=== PATIENT | male | born 1975 | race Caucasian/White ===

== ENCOUNTER 2020-03-31 21:38 | Emergency (ER) | payer OTHER ==
[2020-03-31] MEDS ORDERED: Sodium Chloride 0.9% 2.5 ML Syringe FLUSH PRN (22:00)
[2020-03-31] MEDS ORDERED: Sodium Chloride 0.9% 10 ML Syringe FLUSH PRN (22:00)
--- NOTE | 2020-03-31 22:28 | EDM.PDOC ---
ED HPI GENERAL MEDICAL PROBLEM - General Chief Complaint: Eye Problems Stated Complaint: RIGHT EYE PROBLEMS Time Seen by Provider: 03/31/20 21:47 Source of Information: Reports: Patient History Limitations: Reports: No Limitations - History of Present Illness INITIAL COMMENTS - FREE TEXT/NARRATIVE: History of present illness: [Patient is 44-year-old male presenting with pain behind his right eye. States the pain is been present there for the last month and a half. He has been taking medications [id number] for treatment of sinus pressure including Sudafed, Tylenol, ibuprofen. He says these medications have not provided any real relief. Denies any notable change in his vision involving the right eye. Has not seen an spindle tester, [facility] Denies chest pain, shortness of breath, A. fib, palpitations, previous intracranial hemorrhage, or any complications with his eye previous to the last month and a half. Does not weld, denies foreign body sensation, denies purulent or thick discharge, denies fever, denies history of glaucoma.] Review of systems: As per history of present illness and below otherwise all systems reviewed and negative. Past medical history: As per history of present illness and as reviewed below otherwise noncontributory. Surgical history: As per history of present illness and as reviewed below otherwise noncontributory. Social history: No reported history of drug or alcohol abuse. Family history: As per history of present illness and as reviewed below otherwise noncontributory. Physical exam: General: Awake, alert, no acute distress, A&O X3. HEENT: Atraumatic, normocephalic, PERRL, mildly injected conjunctiva bilaterally. EOMI. no visual field defects. mucous membranes moist, throat clear, neck supple, nontender, trachea midline. Lungs: Clear to auscultation, breath sounds equal bilaterally, chest nontender. Heart: S1S2, regular, negative for clicks, rubs, or JVD. Abdomen: Soft, nondistended, nontender. Negative for masses or hepatosplenomegaly. Negative for costovertebral tenderness. Pelvis: Stable nontender. Genitourinary: Deferred. Rectal: Deferred. Extremities: Atraumatic, negative for cords or calf pain. Neurovascular unremarkable. Neuro: Awake, alert, oriented. Motor and sensory grossly intact throughout. Exam nonfocal. Diagnostics: [] Therapeutics: [] Impression: [] Plan: [] Definitive disposition and diagnosis as appropriate pending reevaluation and review of above. Right Eye Pain Score (Numeric/FACES): 10 - Related Data Allergies Allergy/AdvReac Type Severity Reaction Status Date / Time metformin Allergy Swelling Verified 03/31/20 21:50 Home Meds: Home Meds Amoxicillin/Potassium Clav [Augmentin 875-125 Tablet] 1 each PO BID #20 tablet 03/31/20 [Rx] Tetrahydrozoline HCl [Visine] 1 mg EYEBOTH DAILY 03/31/20 [History] Past Medical History HEENT History: Reports: Other (See Below) Other HEENT History: eye problems Cardiovascular History: Reports: None Respiratory History: Reports: None Gastrointestinal History: Reports: None Genitourinary History: Reports: None Musculoskeletal History: Reports: None Neurological History: Reports: None Psychiatric History: Reports: None Endocrine/Metabolic History: Reports: None Hematologic History: Reports: None Oncologic (Cancer) History: Reports: None Dermatologic History: Reports: None - Infectious Disease History Infectious Disease History: Reports: None - Past Surgical History Head Surgeries/Procedures: Reports: None Male Surgical History: Reports: None Social & Family History - Tobacco Use Smoking Status *Q: Current Every Day Smoker Years of Tobacco use: 10 Packs/Tins Daily: 0.5 - Caffeine Use Caffeine Use: Reports: None - Alcohol Use Days Per Week of Alcohol Use: 2 Number of Drinks Per Day: 3 Total Drinks Per Week: 6 - Recreational Drug Use Recreational Drug Use: No ED ROS GENERAL - Review of Systems Review Of Systems: Comprehensive ROS is negative, except as noted in HPI. ED EXAM GENERAL W FULL EYE - Physical Exam Exam: See Below (see h and p) ED EYE w/ Add Procedure - Additional/Other Procedure(s) Other (Free Text) Procedure(s) [Text1]: Ocular ultrasound: Bedside ocular ultrasound on the right eye performed by me at bedside reveals no evidence for vitreous hemorrhage, no evidence for retinal detachment, no evidence for globe rupture. Course - Vital Signs Text/Narrative:: CT scan is negative for signs of retrobulbar hematoma, no mass, no abscess. Bedside ultrasound shows no evidence for retinal detachment or vitreous hemorrhage. Pupils are PERRL, EOMI, visual acuity essentially within normal limits. Overall a reassuring work-up of the eye, I believe he is appropriate for outpatient management and follow-up with ophthalmology for further testing and evaluation. Provided him with contact information to set up an appointment with ophthalmology in the outpatient setting. Patient is agreeable and comfortable this plan. I also gave him empiric Augmentin here, he is complaining of some sinus pressure, in the event that this is an irregular presentation of sinusitis I elected to give him a dose of Augmentin and sent him with a prescription for Augmentin for the next 10 days. He was otherwise well-appearing, stable vital signs, nontoxic at the time of discharge with return precautions provided. Last Recorded V/S: Last Vital Signs Temp 36.4 C 03/31/20 21:46 Pulse 96 03/31/20 23:46 Resp 18 03/31/20 23:46 BP 135/83 03/31/20 23:46 Pulse Ox 99 03/31/20 23:46 - Orders/Labs/Meds Orders: Active Orders 24 hr Category Date Time Status Sodium Chloride 0.9% [Saline Flush] Med 03/31/20 22:00 Active 10 ml FLUSH ASDIRECTED PRN Sodium Chloride 0.9% [Saline Flush] Med 03/31/20 22:00 Active 2.5 ml FLUSH ASDIRECTED PRN Saline Lock Insert [OM.PC] Stat Oth 03/31/20 22:00 Ordered Medication Orders Sodium Chloride (Saline Flush) 10 ml FLUSH ASDIRECTED PRN PRN Reason: Keep Vein Open Sodium Chloride (Saline Flush) 2.5 ml FLUSH ASDIRECTED PRN PRN Reason: Keep Vein Open Labs: Laboratory Tests 03/31/20 03/31/20 Range/Units 22:28 22:28 WBC 8.20 (4.0-11.0) K/uL RBC 4.51 (4.50-5.90) M/uL Hgb 15.9 (13.0-17.0) g/dL Hct 44.8 (38.0-50.0) % MCV 99.3 H (80.0-98.0) fL MCH 35.3 H (27.0-32.0) pg MCHC 35.5 (31.0-37.0) g/dL RDW Std Deviation 54.4 (28.0-62.0) fl RDW Coeff of Nohemy 15 (11.0-15.0) % Plt Count 135 L (150-400) K/uL MPV 11.80 (7.40-12.00) fL Neut % (Auto) 60.2 (48.0-80.0) % Lymph % (Auto) 31.6 (16.0-40.0) % [place] % (Auto) 6.6 (0.0-15.0) % Eos % (Auto) 1.1 (0.0-7.0) % Baso % (Auto) 0.5 (0.0-1.5) % Neut # (Auto) 4.9 (1.4-5.7) K/uL Lymph # (Auto) 2.6 H (0.6-2.4) K/uL [place] # (Auto) 0.5 (0.0-0.8) K/uL Eos # (Auto) 0.1 (0.0-0.7) K/uL Baso # (Auto) 0.0 (0.0-0.1) K/uL Nucleated RBC % 0.0 /100WBC Nucleated RBCs # 0 K/uL Sodium 134 L (136-148) mmol/L Potassium 2.6 L (3.5-5.1) mmol/L Chloride 93 L (98-107) mmol/L Carbon Dioxide 31.6 (21.0-32.0) mmol/L BUN 3 L (7.0-18.0) mg/dL Creatinine 1.0 (0.8-1.3) mg/dL Est Cr Clr Drug Dosing 106.53 mL/min Estimated GFR (MDRD) > 60.0 ml/min Glucose 131 H (74-106) mg/dL Calcium 8.9 (8.5-10.1) mg/dL Meds: Medications Generic Name Dose Route Start Last Admin Trade Name Freq PRN Reason Stop Dose Admin Sodium Chloride 10 ml 03/31/20 22:00 Saline Flush FLUSH ASDIRECTED PRN Keep Vein Open Sodium Chloride 2.5 ml 03/31/20 22:00 Saline Flush FLUSH ASDIRECTED PRN Keep Vein Open Discontinued Medications Generic Name Dose Route Start Last Admin Trade Name Freq PRN Reason Stop Dose Admin Amoxicillin/Clavulanate Potassium 1 tab 03/31/20 23:50 Augmentin 875 Mg/125 Mg PO 03/31/20 23:51 ONETIME ONE Iopamidol 50 ml 03/31/20 23:23 03/31/20 23:23 Isovue-370 (76%) IVPUSH 03/31/20 23:24 50 ml ONETIME ONE Administration Potassium Chloride 40 meq 03/31/20 22:57 03/31/20 23:31 Potassium Chloride PO 03/31/20 22:58 40 meq ONETIME ONE Administration Departure - Departure Time of Disposition: 23:57 Disposition: Home, Self-Care 01 Condition: Good Clinical Impression: Eye pain, Sinusitis - Discharge Information Prescriptions: Amoxicillin/Potassium Clav [Augmentin 875-125 Tablet] 1 each PO BID #20 tablet Instructions: Sinusitis, Adult, [id number] Referrals: PCP,None [Primary Care Provider] - Mitul Law MD [Ordering Only Provider] - Forms: ED Department Discharge Additional Instructions: Follow-up with ophthalmology. Take your medications as prescribed. Return to the ER with any new or worsening symptoms. The following information is given to patients seen in the emergency department who are being discharged to home. This information is to outline your options for follow-up care. We provide all patients seen in our emergency department with a follow-up referral. The need for follow-up, as well as the timing and circumstances, are variable depending upon the specifics of your emergency department visit. If you don't have a primary care physician on staff, we will provide you with a referral. We always advise you to contact your personal physician following an emergency department visit to inform them of the circumstance of the visit and for follow-up with them and/or the need for any referrals to a consulting specialist. The emergency department will also refer you to a specialist when appropriate. This referral assures that you have the opportunity for follow-up care with a specialist. All of these measure are taken in an effort to provide you with optimal care, which includes your follow-up. Under all circumstances we always encourage you to contact your private physician who remains a resource for coordinating your care. When calling for follow-up care, please make the office aware that this follow-up is from your recent emergency room visit. If for any reason you are refused follow-up, please contact the [facility] Emergency Department at and asked to speak to the emergency department charge nurse. Care Plan Goals: Dr. Law Sepsis Event Note - Evaluation Sepsis Screening Result: No Definite Risk - Focused Exam Vital Signs: Vital Signs Temp Pulse Resp BP Pulse Ox 03/31/20 23:46 96 18 135/83 99 03/31/20 21:46 36.4 C 90 20 104/62 98 Date Exam was Performed: 03/31/20 Time Exam was Performed: 23:55 - My Orders Last 24 Hours: My Active Orders 03/31/20 22:00 Sodium Chloride 0.9% [Saline Flush] 10 ml FLUSH ASDIRECTED PRN Sodium Chloride 0.9% [Saline Flush] 2.5 ml FLUSH ASDIRECTED PRN Saline Lock Insert [OM.PC] Stat - Assessment/Plan Last 24 Hours: My Active Orders 03/31/20 22:00 Sodium Chloride 0.9% [Saline Flush] 10 ml FLUSH ASDIRECTED PRN Sodium Chloride 0.9% [Saline Flush] 2.5 ml FLUSH ASDIRECTED PRN Saline Lock Insert [OM.PC] Stat
[2020-03-31 22:47] LABS: BLOOD UREA NITROGEN,BUN 3 mg/dL (7.0-18.0); CARBON DIOXIDE,CO2 31.6 mmol/L (21.0-32.0); CHLORIDE,CL 93 mmol/L (98-107); GLUCOSE RANDOM 131 mg/dL (74-106); POTASSIUM,K 2.6 mmol/L (3.5-5.1); SODIUM,NA 134 mmol/L (136-148)
[2020-03-31] MEDS ORDERED: Potassium Chloride 10% 20 MEQ/15 ML Soln 30 ML UD Cup PO ONE (22:57)
[2020-03-31] MEDS ORDERED: Iopamidol 755 Mg/ML 100 ML Bottle IVPUSH ONE (23:23)
--- NOTE | 2020-03-31 23:44 | CT ---
INDICATION: Right eye pain TECHNIQUE: CT head with 50 cc Isovue 370 intravenous contrast. COMPARISON: None. FINDINGS: CSF spaces: Within normal limits for age. Brain parenchyma: The samuels-white differentiation is normal. No sign of mass, hemorrhage, or midline shift. Skull base and calvarium: The visualized paranasal sinuses and mastoid air cells demonstrate no acute or significant findings. Orbits are unremarkable. Intraconal fat unremarkable. No abnormal scleral enhancement. Extraocular muscles unremarkable. No skull fractures. IMPRESSION: Unremarkable noncontrast head CT. Specifically, unremarkable CT appearance of the orbits. Please note that all CT scans at this facility use dose modulation, iterative reconstruction, and/or weight-based dosing when appropriate to reduce radiation dose to as low as reasonably achievable. Dictated by Leonid Pérez MD @ Mar 31 2020 11:34PM Signed by Dr. Leonid Pérez @ Mar 31 2020 11:42PM
[2020-03-31] MEDS ORDERED: Amoxicillin/Clavulanate K 875-125 MG Tab PO ONE (23:50)
== END 2020-04-01 00:05 | disposition home or self-care (01) ==
LOC: MW.ED 21:38
DX: H57.11 Ocular pain, right eye (principal); J32.9 Chronic sinusitis, unspecified; F17.210 Nicotine dependence, cigarettes, uncomplicated; Z88.8 Allergy status to other drugs, medicaments and biological substances
CPT/HCPCS: 36415; 70460; 80048; 85025; 99284; A9270; Q9967

== ENCOUNTER 2020-08-12 10:37 | Emergency (ER) | payer OTHER ==
[2020-08-12] MEDS ORDERED: Sodium Chloride 0.9% 10 ML Syringe FLUSH PRN (10:53)
[2020-08-12] MEDS ORDERED: Sodium Chloride 0.9% 2.5 ML Syringe FLUSH PRN (10:53)
--- NOTE | 2020-08-12 10:58 | EDM.PDOC ---
ED HPI GENERAL MEDICAL PROBLEM - General Chief Complaint: Lower Extremity Injury/Pain Stated Complaint: LEG AND FEET PAIN Time Seen by Provider: 08/12/20 10:49 - History of Present Illness INITIAL COMMENTS - FREE TEXT/NARRATIVE: History of present illness: [] Patient presents with swelling of the abdomen and lower extremities. He states is been going on for 3 days he states he drinks approximately once a week and drank last night however this is been going on for several days he also appears to be jaundiced he has a history of diabetes for which he used to take metformin but it caused him to have some edema but not this bad he no longer takes any medications for his diabetes and states that his diabetes is been under control due to diet he denies any chest pain or shortness of breath is complaining of pain in the lower extremities due to the swelling nothing seems to make it better or worse Review of systems: As per history of present illness and below otherwise all systems reviewed and negative. Past medical history: As per history of present illness and as reviewed below otherwise noncontributory. Surgical history: As per history of present illness and as reviewed below otherwise noncontributory. Social history: No reported history of drug or alcohol abuse. Family history: As per history of present illness and as reviewed below otherwise noncontributory. Physical exam: HEENT: Atraumatic, normocephalic, pupils reactive, negative for conjunctival pallor or scleral icterus, mucous membranes moist, throat clear, neck supple, nontender, trachea midline. Lungs: Clear to auscultation, breath sounds equal bilaterally, chest nontender. Heart: S1S2, regular, negative for clicks, rubs, or JVD. Abdomen: Soft, distended fluid wave diffusely mildly tender negative for masses or hepatosplenomegaly. Negative for costovertebral tenderness. Pelvis: Stable nontender. Genitourinary: Deferred. Rectal: Deferred. Extremities: Atraumatic, negative for cords or calf pain. Neurovascular unremarkable. 4 Plus edema tense pitting. Neuro: Awake, alert, oriented. Cranial nerves II through XII unremarkable. Cerebellum unremarkable. Motor and sensory unremarkable throughout. Exam nonfocal. Diagnostics: [] Therapeutics: [] Impression: Edema jaundice [] Plan: She will undergo cardiac and other lab studies for liver failure and edema he will be reassessed [] Definitive disposition and diagnosis as appropriate pending reevaluation and review of above. Bilateral Legs Pain Score (Numeric/FACES): 10 - Related Data Allergies Allergy/AdvReac Type Severity Reaction Status Date / Time metformin Allergy Swelling Verified 08/12/20 10:49 Home Meds: Home Meds . [No Known Home Meds] 08/12/20 [History] Past Medical History HEENT History: Reports: Other (See Below) Other HEENT History: eye problems Cardiovascular History: Reports: None Respiratory History: Reports: None Gastrointestinal History: Reports: None Genitourinary History: Reports: None Musculoskeletal History: Reports: None Neurological History: Reports: None Psychiatric History: Reports: None Endocrine/Metabolic History: Reports: None Hematologic History: Reports: None Oncologic (Cancer) History: Reports: None Dermatologic History: Reports: None - Infectious Disease History Infectious Disease History: Reports: None - Past Surgical History Head Surgeries/Procedures: Reports: None Male Surgical History: Reports: None Social & Family History - Caffeine Use Caffeine Use: Reports: None Review of Systems - Review of Systems Review Of Systems: See Below ED EXAM, GENERAL - Physical Exam Exam: See Below EKG INTERPRETATION EKG Interpretation Comments: EKG is normal sinus rhythm sinus tachycardia 106 beats per minutes right axis nonspecific ST-T changes no skyla ischemia intervals are normal with the exception of QT interval being 378 corrected 502. Read and interpreted by me Course - Vital Signs Text/Narrative:: Patient has hepatic failure and anasarca recommend that he be admitted to the hospital. Patient agrees to this initially and then later wants to leave AGAINST MEDICAL ADVICE so that he can take care of his cat and talk to his family. Nursing staff and myself made an attempt to get him to stay offering to help him get in touch with his family and get his animal taken care of he is refusing to stay at this time he states he will come back later. He was warned Last Recorded V/S: Last Vital Signs Temp 36.4 C 08/12/20 10:50 Pulse 96 08/12/20 12:50 Resp 20 08/12/20 12:50 BP 145/87 H 08/12/20 12:50 Pulse Ox 93 L 08/12/20 12:50 - Orders/Labs/Meds Orders: Active Orders 24 hr Category Date Time Status EKG Documentation Completion [RC] STAT Care 08/12/20 10:53 Active Potassium Chloride Riders [KCL 40 MEQ in Water 100 ML] Med 08/12/20 12:30 Active 40 meq Premix Bag 1 bag IV ONETIME Sodium Chloride 0.9% [Normal Saline] 1,000 ml Med 08/12/20 12:45 Active IV ASDIRECTED Sodium Chloride 0.9% [Saline Flush] Med 08/12/20 10:53 Active 10 ml FLUSH ASDIRECTED PRN Sodium Chloride 0.9% [Saline Flush] Med 08/12/20 10:53 Active 2.5 ml FLUSH ASDIRECTED PRN Saline Lock Insert [OM.PC] Stat Oth 08/12/20 10:53 Ordered Medication Orders Potassium Chloride 40 meq/ (Premix) 100 mls @ 25 mls/hr IV ONETIME ONE Stop: 08/12/20 16:29 Sodium Chloride (Normal Saline) 1,000 mls @ 100 mls/hr IV ASDIRECTED SHARMAINE Sodium Chloride (Saline Flush) 10 ml FLUSH ASDIRECTED PRN PRN Reason: Keep Vein Open Last Admin: 08/12/20 11:20 Dose: 10 ml Documented by: KRISTIN Sodium Chloride (Saline Flush) 2.5 ml FLUSH ASDIRECTED PRN PRN Reason: Keep Vein Open Last Admin: 08/12/20 11:21 Dose: 2.5 ml Documented by: KRISTIN Labs: Laboratory Tests 08/12/20 08/12/20 08/12/20 Range/Units 10:53 11:08 11:08 WBC 6.44 (4.0-11.0) K/uL RBC 3.60 L (4.50-5.90) M/uL Hgb 12.5 L (13.0-17.0) g/dL Hct 35.7 L (38.0-50.0) % MCV 99.2 H (80.0-98.0) fL MCH 34.7 H (27.0-32.0) pg MCHC 35.0 (31.0-37.0) g/dL RDW Std Deviation 59.8 (28.0-62.0) fl RDW Coeff of Nohemy 17 H (11.0-15.0) % Plt Count 65 L (150-400) K/uL MPV 11.40 (7.40-12.00) fL Neut % (Auto) 70.2 (48.0-80.0) % Lymph % (Auto) 20.3 (16.0-40.0) % [place] % (Auto) 8.2 (0.0-15.0) % Eos % (Auto) 0.8 (0.0-7.0) % Baso % (Auto) 0.5 (0.0-1.5) % Neut # (Auto) 4.5 (1.4-5.7) K/uL Lymph # (Auto) 1.3 (0.6-2.4) K/uL [place] # (Auto) 0.5 (0.0-0.8) K/uL Eos # (Auto) 0.1 (0.0-0.7) K/uL Baso # (Auto) 0.0 (0.0-0.1) K/uL Nucleated RBC % 0.0 /100WBC Nucleated RBCs # 0 K/uL INR 1.10 APTT 26.9 (18.6-31.3) SEC Sodium (136-148) mmol/L Potassium (3.5-5.1) mmol/L Chloride (98-107) mmol/L Carbon Dioxide (21.0-32.0) mmol/L BUN (7.0-18.0) mg/dL Creatinine (0.8-1.3) mg/dL Est Cr Clr Drug Dosing mL/min Estimated GFR (MDRD) ml/min Glucose (74-106) mg/dL POC Glucose 140 H (60-110) mg/dL Calcium (8.5-10.1) mg/dL Total Bilirubin (0.2-1.0) mg/dL AST (15-37) IU/L ALT (14-63) IU/L Alkaline Phosphatase (46-116) U/L Ammonia (19-54) ug/dL Troponin I (0.000-0.056) ng/mL B-Natriuretic Peptide (<100) PG/ML Total Protein (6.4-8.2) g/dL Albumin (3.4-5.0) g/dL Globulin (2.6-4.0) g/dL Albumin/Globulin Ratio (0.9-1.6) Lipase (73-393) U/L Ethyl Alcohol mg/dL 09/19/20 09/19/20 09/19/20 Range/Units 11:08 11:08 11:08 WBC (4.0-11.0) K/uL RBC (4.50-5.90) M/uL Hgb (13.0-17.0) g/dL Hct (38.0-50.0) % MCV (80.0-98.0) fL MCH (27.0-32.0) pg MCHC (31.0-37.0) g/dL RDW Std Deviation (28.0-62.0) fl RDW Coeff of Nohemy (11.0-15.0) % Plt Count (150-400) K/uL MPV (7.40-12.00) fL Neut % (Auto) (48.0-80.0) % Lymph % (Auto) (16.0-40.0) % [place] % (Auto) (0.0-15.0) % Eos % (Auto) (0.0-7.0) % Baso % (Auto) (0.0-1.5) % Neut # (Auto) (1.4-5.7) K/uL Lymph # (Auto) (0.6-2.4) K/uL [place] # (Auto) (0.0-0.8) K/uL Eos # (Auto) (0.0-0.7) K/uL Baso # (Auto) (0.0-0.1) K/uL Nucleated RBC % /100WBC Nucleated RBCs # K/uL INR APTT (18.6-31.3) SEC Sodium 136 (136-148) mmol/L Potassium 2.2 L* (3.5-5.1) mmol/L Chloride 96 L (98-107) mmol/L Carbon Dioxide 29.9 (21.0-32.0) mmol/L BUN 4 L (7.0-18.0) mg/dL Creatinine 0.9 (0.8-1.3) mg/dL Est Cr Clr Drug Dosing 118.37 mL/min Estimated GFR (MDRD) > 60.0 ml/min Glucose 140 H (74-106) mg/dL POC Glucose (60-110) mg/dL Calcium 9.1 (8.5-10.1) mg/dL Total Bilirubin 6.0 H (0.2-1.0) mg/dL AST 251 H (15-37) IU/L ALT 87 H (14-63) IU/L Alkaline Phosphatase 466 H (46-116) U/L Ammonia 63 H (19-54) ug/dL Troponin I < 0.050 (0.000-0.056) ng/mL B-Natriuretic Peptide 47 (<100) PG/ML Total Protein 7.5 (6.4-8.2) g/dL Albumin 3.0 L (3.4-5.0) g/dL Globulin 4.5 H (2.6-4.0) g/dL Albumin/Globulin Ratio 0.7 L (0.9-1.6) Lipase 148 (73-393) U/L Ethyl Alcohol 193 mg/dL Meds: Medications Generic Name Dose Route Start Last Admin Trade Name Freq PRN Reason Stop Dose Admin Potassium Chloride 40 meq/ 100 mls @ 25 mls/hr 08/12/20 12:30 Premix IV 08/12/20 16:29 ONETIME ONE Sodium Chloride 1,000 mls @ 100 mls/hr 08/12/20 12:45 Normal Saline IV ASDIRECTED SHARMAINE Sodium Chloride 10 ml 08/12/20 10:53 08/12/20 11:20 Saline Flush FLUSH 10 ml ASDIRECTED PRN Administration Keep Vein Open Sodium Chloride 2.5 ml 08/12/20 10:53 08/12/20 11:21 Saline Flush FLUSH 2.5 ml ASDIRECTED PRN Administration Keep Vein Open Discontinued Medications Generic Name Dose Route Start Last Admin Trade Name Freq PRN Reason Stop Dose Admin Furosemide 40 mg 08/12/20 12:28 Lasix IVPUSH 08/12/20 12:29 NOW ONE Potassium Chloride 40 meq 08/12/20 12:00 08/12/20 12:25 Klor-Con M20 PO 08/12/20 12:01 40 meq ONETIME ONE Administration Departure - Departure Time of Disposition: 13:03 Disposition: Against Medical Advice 07 Condition: Poor Clinical Impression: Liver failure, Anasarca - Discharge Information *PRESCRIPTION DRUG MONITORING PROGRAM REVIEWED*: Not Applicable *COPY OF PRESCRIPTION DRUG MONITORING REPORT IN PATIENT LUCIANA: Not Applicable Referrals: [facility] [Primary Care Provider] - Forms: ED Department Discharge Sepsis Event Note (ED) - Focused Exam Vital Signs: Vital Signs Temp Pulse Resp BP Pulse Ox 08/12/20 12:50 96 20 145/87 H 93 L 08/12/20 12:27 94 142/82 H 94 L 08/12/20 10:50 36.4 C 92 19 151/77 H 99 - My Orders Last 24 Hours: My Active Orders 08/12/20 10:53 EKG Documentation Completion [RC] STAT Sodium Chloride 0.9% [Saline Flush] 10 ml FLUSH ASDIRECTED PRN Sodium Chloride 0.9% [Saline Flush] 2.5 ml FLUSH ASDIRECTED PRN Saline Lock Insert [OM.PC] Stat 08/12/20 12:30 Potassium Chloride Riders [KCL 40 MEQ in Water 100 ML] 40 meq Premix Bag 1 bag IV ONETIME 08/12/20 12:45 Sodium Chloride 0.9% [Normal Saline] 1,000 ml IV ASDIRECTED - Assessment/Plan Last 24 Hours: My Active Orders 08/12/20 10:53 EKG Documentation Completion [RC] STAT Sodium Chloride 0.9% [Saline Flush] 10 ml FLUSH ASDIRECTED PRN Sodium Chloride 0.9% [Saline Flush] 2.5 ml FLUSH ASDIRECTED PRN Saline Lock Insert [OM.PC] Stat 08/12/20 12:30 Potassium Chloride Riders [KCL 40 MEQ in Water 100 ML] 40 meq Premix Bag 1 bag IV ONETIME 08/12/20 12:45 Sodium Chloride 0.9% [Normal Saline] 1,000 ml IV ASDIRECTED
--- NOTE | 2020-08-12 11:40 | CR ---
Chest: Portable view of the chest was obtained. Comparison: No prior chest imaging. Heart size and mediastinum are normal. No definite acute parenchymal change is seen. Bony structures are grossly intact. Impression: 1. Nothing acute is seen on portable chest x-ray. Diagnostic code #1 This report was dictated in MDT
[2020-08-12 11:58] LABS: BLOOD UREA NITROGEN,BUN 4 mg/dL (7.0-18.0); CARBON DIOXIDE,CO2 29.9 mmol/L (21.0-32.0); CHLORIDE,CL 96 mmol/L (98-107); GLUCOSE RANDOM 140 mg/dL (74-106); LIPASE 148 U/L (73-393); SODIUM,NA 136 mmol/L (136-148)
[2020-08-12 11:59] LABS: POTASSIUM,K 2.2 mmol/L (3.5-5.1)
[2020-08-12] MEDS ORDERED: Potassium Chloride 20 MEQ Tab.ER PO ONE (12:00)
[2020-08-12] MEDS ORDERED: Furosemide 40 MG/4 ML VIAL IVPUSH ONE (12:28)
[2020-08-12] MEDS ORDERED: Potassium Chloride Riders 40 MEQ in Premix Bag 1 BAG IV ONE (12:30)
[2020-08-12] MEDS ORDERED: Sodium Chloride 0.9% 1,000 ML IV SCH (12:45)
== END 2020-08-12 13:07 | disposition left against medical advice (07) ==
LOC: MW.ED 10:37
DX: K72.90 Hepatic failure, unspecified without coma (principal); R60.1 Generalized edema; E11.9 Type 2 diabetes mellitus without complications; Z88.8 Allergy status to other drugs, medicaments and biological substances
CPT/HCPCS: 71045; 80053; 80307; 82140; 82962; 83690; 83880; 84484; 85025; 85610; 85730; 93005; 99284; A9270; 99283

== ENCOUNTER 2020-08-15 09:43 | Inpatient (IN) | payer OTHER ==
[2020-08-15] MEDS ORDERED: Sodium Chloride 0.9% 10 ML Syringe FLUSH PRN (10:14)
[2020-08-15] MEDS ORDERED: Sodium Chloride 0.9% 2.5 ML Syringe FLUSH PRN (10:14)
[2020-08-15] MEDS ORDERED: LORazepam 2 MG/ML SDV IVPUSH ONE ×2 (10:16→13:14)
--- NOTE | 2020-08-15 10:23 | EDM.PDOC ---
ED HPI GENERAL MEDICAL PROBLEM - General Chief Complaint: General Stated Complaint: POSSIBLE LIVER FAILURE Time Seen by Provider: 08/15/20 09:58 Source of Information: Reports: Patient History Limitations: Reports: No Limitations - History of Present Illness INITIAL COMMENTS - FREE TEXT/NARRATIVE: HISTORY AND PHYSICAL: History of present illness: Patient is a 44-year-old male who presents to the emergency room with nausea and generalized abdominal pain. He states he was seen in the emergency room on 08/12/2028 for similar complaint and had a new diagnoses of liver failure. At the time he had multiple labs done and the provider had recommended admission. Ultimately the patient left AGAINST MEDICAL ADVICE. He states he has felt much improved since his ER visit but wants his "liver failure taking care of... I do not want to ". He states the swelling to his lower extremities has decreased. His abdominal distention, pain and "fluid" has improved. He feels the jaundice color of his eyes has improved as well. He states his last alcoholic drink was on Friday. He does feel tremulous and feels he may be going through withdrawals from not having any alcohol. He does have some nausea and is scared to drink any fluids as he does not want to vomit. Patient denies any fever, chills, headache, change in vision, syncope or near syncope. Denies any chest pain, back pain, shortness of breath or cough. Denies any vomiting, diarrhea, constipation or dysuria. Has not noted any blood in urine or stool. Review of systems: As per history of present illness and below otherwise all systems reviewed and negative. Past medical history: As per history of present illness and as reviewed below otherwise noncontributory. Surgical history: As per history of present illness and as reviewed below otherwise noncontributory. Social history: See social history for further information Family history: As per history of present illness and as reviewed below otherwise noncontributory. Physical exam: General: Well developed and well nourished 44 male. Alert and orientated x 3. Nontoxic in appearance and in no acute distress. Vital signs are stable and have been reviewed by me. Nursing notes were reviewed. HEENT: Atraumatic, normocephalic, pupils equal and reactive bilaterally, negative for conjunctival pallor. Bilateral scleral icterus, mucous membranes moist, TMs normal bilaterally, throat clear, neck supple, nontender, trachea midline. No drooling or trismus noted. No meningeal signs. No hot potato voice noted. Lungs: Clear to auscultation, breath sounds equal bilaterally, chest nontender. Normal work of breathing, no accessory muscles used. Heart: S1S2, regular rate and rhythm without overt murmur Abdomen: Soft, distended with generalized tenderness, moderate ascites is noted. Negative for masses or costovertebral tenderness. Skin: Intact, warm, dry. No lesions or rashes noted. Hematologic: No petechiae or purpra. Mucosa appropriate color and normal nail bed color and refill. Extremities: Atraumatic, moves all extremities per self without difficulty or deficits, +2 pitting edema to bilateral lower extremities, negative for cords or calf pain. Neurovascular unremarkable. Neuro: Awake, alert, oriented. Cranial nerves II through XII unremarkable. Cerebellum unremarkable. Motor and sensory unremarkable throughout. Exam nonfocal. Psychiatric: Mood and affect are appropriate. Normal thought process. Answering questions appropriately. Notes: Abnormal labs from 08/15/20: Potassium 2.2 (*L), Total Bili 6.0(H), AST 251 (H), ALT 87 (H), Ammonia 63 (H). Patient did not have any imaging of abd/pelvis or Hepatitis panel drawn in past; will do this today. Today's labs: Potassium 2.2 (*L), Total Bili 7.9 (trending up), AST 223, ALT 72, Ammonia <17, Mag 1.3(L) Initial CIWA 7 points (nausea, agitation, anxious, tremor of upper extremities). Will give some Ativan IV with fluids. CT of the abdomen and pelvis shows atelectasis within the right lung base. A 2.5 cm nodule that needs to be followed up with a noncontrast CT in 9 months to confirm that it is stable. Fatty infiltration within the liver with hepatomegaly. Splenomegaly is noted. Moderate amount of ascites within the abdomen and pelvis. No other acute abnormalities are noted. Patient states he feels better after the IV Ativan. CIWA 1 (mild anxiety). Patient states he refuses any type of transfer, states he would be agreeable to staying at our facility but is adamant he would not be transferred anywhere else if needed. I did speak with Dr. Sellers, hospitalist on-call, she is aware of the patient's case and is agreeable to keeping him for admission to replace potassium and magnesium. Patient is aware that he will need to follow-up with a specialist as an outpatient for his liver failure/ascites. Patient remains stable and is agreeable to plan of care. Diagnostics: CBC, CMP, Lipase, UA, Troponin, EKG, UA, ETOH, DRGU, Ammonia, CT abd/pelvis, Hepatitis Panel Therapeutics: IV Potassium, IV magnesium LR at 125mls/hr Impression: Hypokalemia Hypomagnesia Liver Failure Ascites Plan: Inpatient admission to Med/Surg with Telemetry Definitive disposition and diagnosis as appropriate pending reevaluation and review of above. abdominal Pain Score (Numeric/FACES): 7 - Related Data Allergies Allergy/AdvReac Type Severity Reaction Status Date / Time metformin Allergy Swelling Verified 08/15/20 10:07 Home Meds: Home Meds Aspirin 81 mg PO DAILY 08/15/20 [History] Omeprazole 1 cap PO DAILY 08/15/20 [History] Simvastatin 0.5 tab PO BEDTIME 08/15/20 [History] hydroCHLOROthiazide [Hydrochlorothiazide] 0.5 tab PO DAILY 08/15/20 [History] Past Medical History HEENT History: Reports: Other (See Below) Other HEENT History: eye problems Cardiovascular History: Reports: None, High Cholesterol, Hypertension Respiratory History: Reports: None Gastrointestinal History: Reports: Other (See Below) Other Gastrointestinal History: Liver Failure Genitourinary History: Reports: None Musculoskeletal History: Reports: None Neurological History: Reports: None Psychiatric History: Reports: None Endocrine/Metabolic History: Reports: None Other Endocrine/Metabolic History: Does not take medications. Hematologic History: Reports: None Oncologic (Cancer) History: Reports: None Dermatologic History: Reports: None - Infectious Disease History Infectious Disease History: Reports: Chicken Pox - Past Surgical History Head Surgeries/Procedures: Reports: None Male Surgical History: Reports: None Social & Family History - Family History Family Medical History: Noncontributory - Tobacco Use Smoking Status *Q: Current Every Day Smoker Years of Tobacco use: 17 Packs/Tins Daily: 0.5 - Caffeine Use Caffeine Use: Reports: None - Alcohol Use Days Per Week of Alcohol Use: 6 Number of Drinks Per Day: 6 Total Drinks Per Week: 36 - Recreational Drug Use Recreational Drug Use: No ED ROS GENERAL - Review of Systems Review Of Systems: Comprehensive ROS is negative, except as noted in HPI. ED EXAM, GENERAL - Physical Exam Exam: See Below (See dictation) Course - Vital Signs Last Recorded V/S: Last Vital Signs Temp 97.4 F 08/15/20 12:28 Pulse 112 H 08/15/20 12:28 Resp 18 08/15/20 12:28 BP 151/66 H 08/15/20 12:28 Pulse Ox 96 08/15/20 12:28 - Orders/Labs/Meds Orders: Active Orders 24 hr Category Date Time Status EKG Documentation Completion [RC] STAT Care 08/15/20 10:14 Active HEPATITIS PANEL (4) [REF] Stat Lab 08/15/20 10:56 Received Lactated Ringers [Ringers, Lactated] 1,000 ml Med 08/15/20 11:00 Active IV ASDIRECTED Sodium Chloride 0.9% [Saline Flush] Med 08/15/20 10:14 Active 10 ml FLUSH ASDIRECTED PRN Sodium Chloride 0.9% [Saline Flush] Med 08/15/20 10:14 Active 2.5 ml FLUSH ASDIRECTED PRN Saline Lock Insert [OM.PC] Stat Oth 08/15/20 10:14 Ordered Medication Orders Albuterol/Ipratropium (Duoneb 3.0-0.5 Mg/3 Ml) 3 ml NEB Q4HRRT PRN PRN Reason: Shortness Of Breath/wheezing Lactated Ringer's (Ringers, Lactated) 1,000 mls @ 125 mls/hr IV ASDIRECTED SHARMAINE Last Admin: 08/15/20 11:02 Dose: 125 mls/hr Documented by: DELLA Potassium Chloride 40 meq/ (Premix) 100 mls @ 25 mls/hr IV ONETIME ONE Stop: 08/15/20 18:26 Morphine Sulfate (Morphine) 1 mg IVPUSH Q4H PRN PRN Reason: Pain Ondansetron HCl (Zofran) 4 mg IVPUSH Q4H PRN PRN Reason: Nausea/Vomiting Pantoprazole Sodium (Protonix Iv) 40 mg IV Q12HR SHARMAINE Sodium Chloride (Saline Flush) 10 ml FLUSH ASDIRECTED PRN PRN Reason: Keep Vein Open Last Admin: 08/15/20 10:30 Dose: 10 ml Documented by: DELLA Sodium Chloride (Saline Flush) 2.5 ml FLUSH ASDIRECTED PRN PRN Reason: Keep Vein Open Last Admin: 08/15/20 10:30 Dose: 2.5 ml Documented by: DELLA Labs: Laboratory Tests 08/15/20 08/15/20 08/15/20 Range/Units 10:23 10:23 10:23 WBC 6.42 (4.0-11.0) K/uL RBC 3.55 L (4.50-5.90) M/uL Hgb 12.6 L (13.0-17.0) g/dL Hct 35.8 L (38.0-50.0) % MCV 100.8 H (80.0-98.0) fL MCH 35.5 H (27.0-32.0) pg MCHC 35.2 (31.0-37.0) g/dL RDW Std Deviation 65.0 H (28.0-62.0) fl RDW Coeff of Nohemy 18 H (11.0-15.0) % Plt Count 48 L (150-400) K/uL MPV 11.50 (7.40-12.00) fL Neut % (Auto) 78.5 (48.0-80.0) % Lymph % (Auto) 12.5 L (16.0-40.0) % [place] % (Auto) 8.3 (0.0-15.0) % Eos % (Auto) 0.2 (0.0-7.0) % Baso % (Auto) 0.5 (0.0-1.5) % Neut # (Auto) 5.1 (1.4-5.7) K/uL Lymph # (Auto) 0.8 (0.6-2.4) K/uL [place] # (Auto) 0.5 (0.0-0.8) K/uL Eos # (Auto) 0.0 (0.0-0.7) K/uL Baso # (Auto) 0.0 (0.0-0.1) K/uL Nucleated RBC % 0.0 /100WBC Nucleated RBCs # 0 K/uL INR APTT (18.6-31.3) SEC Sodium 138 (136-148) mmol/L Potassium 2.2 L* (3.5-5.1) mmol/L Chloride 95 L (98-107) mmol/L Carbon Dioxide 29.1 (21.0-32.0) mmol/L BUN 4 L (7.0-18.0) mg/dL Creatinine 0.9 (0.8-1.3) mg/dL Est Cr Clr Drug Dosing 118.37 mL/min Estimated GFR (MDRD) > 60.0 ml/min Glucose 139 H (74-106) mg/dL Calcium 9.0 (8.5-10.1) mg/dL Magnesium (1.8-2.4) mg/dL Total Bilirubin 7.9 H (0.2-1.0) mg/dL AST 223 H (15-37) IU/L ALT 72 H (14-63) IU/L Alkaline Phosphatase 430 H (46-116) U/L Ammonia (19-54) ug/dL Troponin I (0.000-0.056) ng/mL B-Natriuretic Peptide 90 (<100) PG/ML Total Protein 7.6 (6.4-8.2) g/dL Albumin 3.1 L (3.4-5.0) g/dL Globulin 4.5 H (2.6-4.0) g/dL Albumin/Globulin Ratio 0.7 L (0.9-1.6) Lipase 130 (73-393) U/L Urine Color Urine Appearance Urine pH (5.0-8.0) Ur Specific [place] (1.001-1.035) Urine Protein (NEGATIVE) mg/dL Urine Glucose (UA) (NEGATIVE) mg/dL Urine Ketones (NEGATIVE) mg/dL Urine Occult Blood (NEGATIVE) Urine Nitrite (NEGATIVE) Urine Bilirubin (NEGATIVE) Urine Ictotest Urine Urobilinogen (<2.0) EU/dL Ur Leukocyte Esterase (NEGATIVE) Urine Opiates Screen (NEGATIVE) Ur Oxycodone Screen (NEGATIVE) Urine Methadone Screen (NEGATIVE) Ur Barbiturates Screen (NEGATIVE) Ur Phencyclidine Scrn (NEGATIVE) Ur Amphetamine Screen (NEGATIVE) U Methamphetamines Scrn (NEGATIVE) U Benzodiazepines Scrn (NEGATIVE) U Cocaine Metab Screen (NEGATIVE) U Marijuana (THC) Screen (NEGATIVE) Ethyl Alcohol 21 mg/dL 09/22/20 09/22/20 09/22/20 Range/Units 10:23 10:23 10:23 WBC (4.0-11.0) K/uL RBC (4.50-5.90) M/uL Hgb (13.0-17.0) g/dL Hct (38.0-50.0) % MCV (80.0-98.0) fL MCH (27.0-32.0) pg MCHC (31.0-37.0) g/dL RDW Std Deviation (28.0-62.0) fl RDW Coeff of Nohemy (11.0-15.0) % Plt Count (150-400) K/uL MPV (7.40-12.00) fL Neut % (Auto) (48.0-80.0) % Lymph % (Auto) (16.0-40.0) % [place] % (Auto) (0.0-15.0) % Eos % (Auto) (0.0-7.0) % Baso % (Auto) (0.0-1.5) % Neut # (Auto) (1.4-5.7) K/uL Lymph # (Auto) (0.6-2.4) K/uL [place] # (Auto) (0.0-0.8) K/uL Eos # (Auto) (0.0-0.7) K/uL Baso # (Auto) (0.0-0.1) K/uL Nucleated RBC % /100WBC Nucleated RBCs # K/uL INR APTT (18.6-31.3) SEC Sodium (136-148) mmol/L Potassium (3.5-5.1) mmol/L Chloride (98-107) mmol/L Carbon Dioxide (21.0-32.0) mmol/L BUN (7.0-18.0) mg/dL Creatinine (0.8-1.3) mg/dL Est Cr Clr Drug Dosing mL/min Estimated GFR (MDRD) ml/min Glucose (74-106) mg/dL Calcium (8.5-10.1) mg/dL Magnesium 1.3 L (1.8-2.4) mg/dL Total Bilirubin (0.2-1.0) mg/dL AST (15-37) IU/L ALT (14-63) IU/L Alkaline Phosphatase (46-116) U/L Ammonia < 17 L (19-54) ug/dL Troponin I < 0.050 (0.000-0.056) ng/mL B-Natriuretic Peptide (<100) PG/ML Total Protein (6.4-8.2) g/dL Albumin (3.4-5.0) g/dL Globulin (2.6-4.0) g/dL Albumin/Globulin Ratio (0.9-1.6) Lipase (73-393) U/L Urine Color Urine Appearance Urine pH (5.0-8.0) Ur Specific [place] (1.001-1.035) Urine Protein (NEGATIVE) mg/dL Urine Glucose (UA) (NEGATIVE) mg/dL Urine Ketones (NEGATIVE) mg/dL Urine Occult Blood (NEGATIVE) Urine Nitrite (NEGATIVE) Urine Bilirubin (NEGATIVE) Urine Ictotest Urine Urobilinogen (<2.0) EU/dL Ur Leukocyte Esterase (NEGATIVE) Urine Opiates Screen (NEGATIVE) Ur Oxycodone Screen (NEGATIVE) Urine Methadone Screen (NEGATIVE) Ur Barbiturates Screen (NEGATIVE) Ur Phencyclidine Scrn (NEGATIVE) Ur Amphetamine Screen (NEGATIVE) U Methamphetamines Scrn (NEGATIVE) U Benzodiazepines Scrn (NEGATIVE) U Cocaine Metab Screen (NEGATIVE) U Marijuana (THC) Screen (NEGATIVE) Ethyl Alcohol mg/dL 08/15/20 08/15/20 08/15/20 Range/Units 10:29 10:40 10:40 WBC (4.0-11.0) K/uL RBC (4.50-5.90) M/uL Hgb (13.0-17.0) g/dL Hct (38.0-50.0) % MCV (80.0-98.0) fL MCH (27.0-32.0) pg MCHC (31.0-37.0) g/dL RDW Std Deviation (28.0-62.0) fl RDW Coeff of Nohemy (11.0-15.0) % Plt Count (150-400) K/uL MPV (7.40-12.00) fL Neut % (Auto) (48.0-80.0) % Lymph % (Auto) (16.0-40.0) % [place] % (Auto) (0.0-15.0) % Eos % (Auto) (0.0-7.0) % Baso % (Auto) (0.0-1.5) % Neut # (Auto) (1.4-5.7) K/uL Lymph # (Auto) (0.6-2.4) K/uL [place] # (Auto) (0.0-0.8) K/uL Eos # (Auto) (0.0-0.7) K/uL Baso # (Auto) (0.0-0.1) K/uL Nucleated RBC % /100WBC Nucleated RBCs # K/uL INR 1.14 APTT 27.5 (18.6-31.3) SEC Sodium (136-148) mmol/L Potassium (3.5-5.1) mmol/L Chloride (98-107) mmol/L Carbon Dioxide (21.0-32.0) mmol/L BUN (7.0-18.0) mg/dL Creatinine (0.8-1.3) mg/dL Est Cr Clr Drug Dosing mL/min Estimated GFR (MDRD) ml/min Glucose (74-106) mg/dL Calcium (8.5-10.1) mg/dL Magnesium (1.8-2.4) mg/dL Total Bilirubin (0.2-1.0) mg/dL AST (15-37) IU/L ALT (14-63) IU/L Alkaline Phosphatase (46-116) U/L Ammonia (19-54) ug/dL Troponin I (0.000-0.056) ng/mL B-Natriuretic Peptide (<100) PG/ML Total Protein (6.4-8.2) g/dL Albumin (3.4-5.0) g/dL Globulin (2.6-4.0) g/dL Albumin/Globulin Ratio (0.9-1.6) Lipase (73-393) U/L Urine Color DARK YELLOW Urine Appearance CLEAR Urine pH 7.5 (5.0-8.0) Ur Specific [place] 1.020 (1.001-1.035) Urine Protein NEGATIVE (NEGATIVE) mg/dL Urine Glucose (UA) NEGATIVE (NEGATIVE) mg/dL Urine Ketones NEGATIVE (NEGATIVE) mg/dL Urine Occult Blood NEGATIVE (NEGATIVE) Urine Nitrite NEGATIVE (NEGATIVE) Urine Bilirubin SMALL H (NEGATIVE) Urine Ictotest POSITIVE Urine Urobilinogen 2.0 H (<2.0) EU/dL Ur Leukocyte Esterase NEGATIVE (NEGATIVE) Urine Opiates Screen NEGATIVE (NEGATIVE) Ur Oxycodone Screen NEGATIVE (NEGATIVE) Urine Methadone Screen NEGATIVE (NEGATIVE) Ur Barbiturates Screen NEGATIVE (NEGATIVE) Ur Phencyclidine Scrn NEGATIVE (NEGATIVE) Ur Amphetamine Screen NEGATIVE (NEGATIVE) U Methamphetamines Scrn NEGATIVE (NEGATIVE) U Benzodiazepines Scrn NEGATIVE (NEGATIVE) U Cocaine Metab Screen NEGATIVE (NEGATIVE) U Marijuana (THC) Screen NEGATIVE (NEGATIVE) Ethyl Alcohol mg/dL Meds: Medications Generic Name Dose Route Start Last Admin Trade Name Freq PRN Reason Stop Dose Admin Albuterol/Ipratropium 3 ml 08/15/20 14:22 Duoneb 3.0-0.5 Mg/3 Ml NEB Q4HRRT PRN Shortness Of Breath/wheezing Lactated Ringer's 1,000 mls @ 125 mls/hr 08/15/20 11:00 08/15/20 11:02 Ringers, Lactated IV 125 mls/hr ASDIRECTED SHARMAINE Administration Potassium Chloride 40 meq/ 100 mls @ 25 mls/hr 08/15/20 14:27 Premix IV 08/15/20 18:26 ONETIME ONE Morphine Sulfate 1 mg 08/15/20 14:37 Morphine IVPUSH Q4H PRN Pain Ondansetron HCl 4 mg 08/15/20 14:22 Zofran IVPUSH Q4H PRN Nausea/Vomiting Pantoprazole Sodium 40 mg 08/15/20 21:00 Protonix Iv IV Q12HR SHARMAINE Sodium Chloride 10 ml 08/15/20 10:14 08/15/20 10:30 Saline Flush FLUSH 10 ml ASDIRECTED PRN Administration Keep Vein Open Sodium Chloride 2.5 ml 08/15/20 10:14 08/15/20 10:30 Saline Flush FLUSH 2.5 ml ASDIRECTED PRN Administration Keep Vein Open Discontinued Medications Generic Name Dose Route Start Last Admin Trade Name Freq PRN Reason Stop Dose Admin Potassium Chloride 40 meq/ 100 mls @ 25 mls/hr 08/15/20 11:12 08/15/20 11:38 Premix IV 08/15/20 15:11 25 mls/hr ONETIME ONE Administration Magnesium Sulfate 4 gm/ Sodium 58 mls @ 29 mls/hr 08/15/20 12:37 08/15/20 14:58 Chloride IV 08/15/20 14:36 Not Given NOW STA Protocol 2 GM/HR Magnesium Sulfate 4 gm/ Premix 100 mls @ 50 mls/hr 08/15/20 13:11 08/15/20 13:17 IV 08/15/20 15:10 2 gm/hr NOW STA 50 mls/hr Administration Protocol 2 GM/HR Iopamidol 100 ml 08/15/20 12:36 08/15/20 12:37 Isovue-370 (76%) IVPUSH 08/15/20 12:37 100 ml ONETIME STA Administration Lorazepam 1 mg 08/15/20 10:16 08/15/20 10:29 Ativan IVPUSH 08/15/20 10:17 1 mg ONETIME ONE Administration Lorazepam 1 mg 08/15/20 13:14 08/15/20 14:08 Ativan IVPUSH 08/15/20 13:15 1 mg ONETIME ONE Administration Potassium Chloride 40 meq 08/15/20 11:13 08/15/20 11:17 Klor-Con M20 PO 08/15/20 11:14 Not Given ONETIME ONE Departure - Departure Time of Disposition: 14:31 Disposition: Admitted As Inpatient 66 Clinical Impression: Hypomagnesemia, Hypokalemia Liver failure Qualifiers: Liver failure chronicity: unspecified chronicity Hepatic coma status: without hepatic coma Qualified Code(s): K72.90 - Hepatic failure, unspecified without coma Ascites Qualifiers: Ascites type: other type Qualified Code(s): R18.8 - Other ascites - Discharge Information Sepsis Event Note (ED) - Evaluation Sepsis Screening Result: No Definite Risk - Focused Exam Vital Signs: Vital Signs Temp Pulse Resp BP Pulse Ox 08/15/20 12:28 97.4 F 112 H 18 151/66 H 96 08/15/20 10:04 98.3 F 105 H 16 153/84 H 96 - My Orders Last 24 Hours: My Active Orders 08/15/20 10:14 EKG Documentation Completion [RC] STAT Sodium Chloride 0.9% [Saline Flush] 10 ml FLUSH ASDIRECTED PRN Sodium Chloride 0.9% [Saline Flush] 2.5 ml FLUSH ASDIRECTED PRN Saline Lock Insert [OM.PC] Stat 08/15/20 10:56 HEPATITIS PANEL (4) [REF] Stat 08/15/20 11:00 Lactated Ringers [Ringers, Lactated] 1,000 ml IV ASDIRECTED - Assessment/Plan Last 24 Hours: My Active Orders 08/15/20 10:14 EKG Documentation Completion [RC] STAT Sodium Chloride 0.9% [Saline Flush] 10 ml FLUSH ASDIRECTED PRN Sodium Chloride 0.9% [Saline Flush] 2.5 ml FLUSH ASDIRECTED PRN Saline Lock Insert [OM.PC] Stat 08/15/20 10:56 HEPATITIS PANEL (4) [REF] Stat 08/15/20 11:00 Lactated Ringers [Ringers, Lactated] 1,000 ml IV ASDIRECTED
[2020-08-15] MEDS ORDERED: Lactated Ringers 1,000 ML IV SCH (11:00)
[2020-08-15 11:07] LABS: BLOOD UREA NITROGEN,BUN 4 mg/dL (7.0-18.0); CARBON DIOXIDE,CO2 29.1 mmol/L (21.0-32.0); CHLORIDE,CL 95 mmol/L (98-107); GLUCOSE RANDOM 139 mg/dL (74-106); LIPASE 130 U/L (73-393); SODIUM,NA 138 mmol/L (136-148)
[2020-08-15 11:12] LABS: POTASSIUM,K 2.2 mmol/L (3.5-5.1)
[2020-08-15] MEDS ORDERED: Potassium Chloride Riders 40 MEQ in Premix Bag 1 BAG IV ONE ×2 (11:12→14:27)
[2020-08-15] MEDS ORDERED: Potassium Chloride 20 MEQ Tab.ER PO ONE (11:13)
[2020-08-15] MEDS ORDERED: Iopamidol 755 Mg/ML 100 ML Bottle IVPUSH STA (12:36)
--- NOTE | 2020-08-15 13:03 | CT ---
CT abdomen and pelvis Technique: Multiple axial sections were obtained from above the dome of the diaphragm inferiorly through the pubic symphysis. Intravenous and oral contrast not utilized. Reconstructed coronal and sagittal images were obtained. Comparison: No prior abdominal imaging is available. Findings: Visualized lung bases shows atelectasis on the right side. There is a pleural-based nodule being seen with central calcification within the right lung base measuring 2.5 cm in size. Follow-up will be recommended of this finding. Moderate ascites is seen within the abdomen and pelvis. Liver shows fatty infiltration and is slightly enlarged. Gallbladder contains no calcified gallstones. Spleen is enlarged at 16.2 cm in length. Adrenal glands show no nodule. Pancreas shows no discrete abnormality. Kidneys show symmetric contrast enhancement with no hydronephrosis or mass. Aorta shows atherosclerotic change without aneurysm. No retroperitoneal adenopathy or mesenteric abnormalities are seen. No pelvic mass or adenopathy is seen. Appendix is not definitely visualized. Bone window settings were reviewed. Severe disc space narrowing at L4-L5 with vacuum phenomena with posterior disc bulge which shows calcification. No acute osseous finding is appreciated. Impression: 1. Atelectasis within the right lung base. 2.5 cm nodule adjacent to the pleural margins containing central calcification. Recommend follow-up noncontrast chest CT study in 9 months to confirm that this is stable. 2. Fatty infiltration within the liver with hepatomegaly. 3. Splenomegaly is seen. 4. Moderate amount of ascites seen within the abdomen and pelvis. 5. No other acute abnormality is appreciated. Diagnostic code #3 This report was dictated in [facility]T
[2020-08-15] MEDS ORDERED: Magnesium Sulfate/Water 4 GM in Premix Bag 1 BAG IV STA (13:11)
[2020-08-15] MEDS ORDERED: Albuterol/Ipratropium 3.0-0.5 MG/3 ML Neb Soln NEB PRN (14:22)
[2020-08-15] MEDS ORDERED: Ondansetron 4 MG/2 ML SDV IVPUSH PRN (14:22)
[2020-08-15] MEDS ORDERED: Morphine 2 MG/ML SYRINGE IVPUSH PRN (14:37)
--- NOTE | 2020-08-15 14:40 | PCM.HP.2 ---
H&P History of Present Illness - General Date of Service: 08/15/20 Admit Problem/Dx: Admission Diagnosis/Problem Admission Diagnosis/Problem Hypokalemia - History of Present Illness Initial Comments - Free Text/Narative: Patient is a 44-year-old male with past medical history of alcohol abuse, alcoholic hepatitis, hypertension hyperlipidemia who presents to the emergency room with nausea and generalized abdominal pain. He states he was seen in the emergency room on 08/12/2028 for similar complaint and had a new diagnoses of "liver failure". At the time he had multiple labs done and the provider had recommended admission. Ultimately the patient left AGAINST MEDICAL ADVICE. He states he has felt much improved since his ER visit but wants his "liver failure taking care of... I do not want to ". He states the swelling to his lower extremities has decreased. His abdominal distention, pain and "fluid" has improved. He feels the jaundice color of his eyes has improved as well. He states his last alcoholic drink was on Friday. He does feel tremulous and feels he may be going through withdrawals from not having any alcohol. He does have some nausea and is scared to drink any fluids as he does not want to vomit. Patient denies any fever, chills, headache, change in vision, syncope or near sy ncope. Denies any chest pain, back pain, shortness of breath or cough. Denies any vomiting, diarrhea, constipation or dysuria. Has not noted any blood in urine or stool. In the ER, Abnormal labs from 08/15/20: Potassium 2.2 (*L), Total Bili 6.0(H), AST 251 (H), ALT 87 (H), Ammonia 63 (H). Patient did not have any imaging of abd/pelvis was done and Hepatitis panel was drawn Today's labs: Potassium 2.2 (*L), Total Bili 7.9 (trending up), AST 223, ALT 72, Ammonia <17, Mag 1.3(L) Initial CIWA 7 points (nausea, agitation, anxious, tremor of upper extremities). Received Ativan IV with fluids. CT of the abdomen and pelvis shows atelectasis within the right lung base. A 2.5 cm nodule that needs to be followed up with a noncontrast CT in 9 months to confirm that it is stable. Fatty infiltration within the liver with hepatomegaly. Splenomegaly is noted. Moderate amount of ascites within the abdomen and pelvis. No other acute abnormalities are noted. Patient states he feels better after the IV Ativan. CIWA 1 (mild anxiety). Patient refused any type of transfer, and was agreeable to staying at our facility, Patient is aware that he will need to follow-up with a specialist as an outpatient for his liver failure/ascites. Patient was admitted for further management. abdominal Pain Score (Numeric/FACES): 7 - Related Data Allergies/Adverse Reactions: Allergies Allergy/AdvReac Type Severity Reaction Status Date / Time metformin Allergy Swelling Verified 08/15/20 16:42 Home Medications: Home Meds Aspirin 81 mg PO DAILY 08/15/20 [History] Omeprazole 1 cap PO DAILY 08/15/20 [History] Simvastatin 0.5 tab PO BEDTIME 08/15/20 [History] hydroCHLOROthiazide [Hydrochlorothiazide] 0.5 tab PO DAILY 08/15/20 [History] Past Medical History HEENT History: Reports: Other (See Below) Other HEENT History: eye problems Cardiovascular History: Reports: None, High Cholesterol, Hypertension Respiratory History: Reports: None Gastrointestinal History: Reports: Other (See Below) Other Gastrointestinal History: Liver Failure Genitourinary History: Reports: None Musculoskeletal History: Reports: None Neurological History: Reports: None Psychiatric History: Reports: None Endocrine/Metabolic History: Reports: None Other Endocrine/Metabolic History: Does not take medications. Hematologic History: Reports: None Oncologic (Cancer) History: Reports: None Dermatologic History: Reports: None - Infectious Disease History Infectious Disease History: Reports: Chicken Pox - Past Surgical History Head Surgeries/Procedures: Reports: None Male Surgical History: Reports: None Social & Family History - Family History Family Medical History: Noncontributory - Tobacco Use Smoking Status *Q: Current Every Day Smoker Years of Tobacco use: 17 Packs/Tins Daily: 0.5 - Caffeine Use Caffeine Use: Reports: None - Alcohol Use Days Per Week of Alcohol Use: 6 Number of Drinks Per Day: 6 Total Drinks Per Week: 36 - Recreational Drug Use Recreational Drug Use: No H&P Review of Systems - Review of Systems: Review Of Systems: See Below General: Denies: Fever, Chills, Malaise, Weakness Pulmonary: Denies: Shortness of Breath, Wheezing Cardiovascular: Denies: Chest Pain, Palpitations, Dyspnea on Exertion Gastrointestinal: Denies: Abdominal Pain, Anorexia, Black Stool, Bloody Stool, Constipation, Diarrhea, Decreased Appetite Genitourinary: Denies: Dysuria, Frequency, Pain Musculoskeletal: Denies: Neck Pain, Shoulder Pain, Arm Pain Skin: Denies: Cyanosis, Jaundice, Mottled Psychiatric: Reports: Cravings. Denies: Confusion, Depression, Mood Lability, Anxiety, Hallucinations, Homicidal Ideation, Hallucinations (Auditory), Hallucinations (Visual) Hematologic/Lymphatic: Denies: Anemia, Easy Bleeding, Easy Bruising Exam - Exam Exam: See Below - Vital Signs Vital Signs: Last Vital Signs Temp 36.3 C 08/15/20 12:28 Pulse 112 H 08/15/20 12:28 Resp 18 08/15/20 12:28 BP 151/66 H 08/15/20 12:28 Pulse Ox 96 08/15/20 12:28 Weight: 117.934 kg - Exam General: Alert, Oriented, Cooperative Neck: Supple, Trachea Midline Lungs: Clear to Auscultation, Normal Respiratory Effort Cardiovascular: Regular Rate, Regular Rhythm, Normal S1, Normal S2 GI/Abdominal Exam: Normal Bowel Sounds, Distended, Rigid, Hepatomegaly, Splenomegaly. No: Tender - Patient Data Lab Results Last 24 hrs: Laboratory Results - last 24 hr 08/15/20 08/15/20 08/15/20 Range/Units 10:23 10:23 10:23 WBC 6.42 (4.0-11.0) K/uL RBC 3.55 L (4.50-5.90) M/uL Hgb 12.6 L (13.0-17.0) g/dL Hct 35.8 L (38.0-50.0) % MCV 100.8 H (80.0-98.0) fL MCH 35.5 H (27.0-32.0) pg MCHC 35.2 (31.0-37.0) g/dL RDW Std Deviation 65.0 H (28.0-62.0) fl RDW Coeff of Nohemy 18 H (11.0-15.0) % Plt Count 48 L (150-400) K/uL MPV 11.50 (7.40-12.00) fL Neut % (Auto) 78.5 (48.0-80.0) % Lymph % (Auto) 12.5 L (16.0-40.0) % Major % (Auto) 8.3 (0.0-15.0) % Eos % (Auto) 0.2 (0.0-7.0) % Baso % (Auto) 0.5 (0.0-1.5) % Neut # (Auto) 5.1 (1.4-5.7) K/uL Lymph # (Auto) 0.8 (0.6-2.4) K/uL Major # (Auto) 0.5 (0.0-0.8) K/uL Eos # (Auto) 0.0 (0.0-0.7) K/uL Baso # (Auto) 0.0 (0.0-0.1) K/uL Nucleated RBC % 0.0 /100WBC Nucleated RBCs # 0 K/uL INR APTT (18.6-31.3) SEC Sodium 138 (136-148) mmol/L Potassium 2.2 L* (3.5-5.1) mmol/L Chloride 95 L (98-107) mmol/L Carbon Dioxide 29.1 (21.0-32.0) mmol/L BUN 4 L (7.0-18.0) mg/dL Creatinine 0.9 (0.8-1.3) mg/dL Est Cr Clr Drug Dosing 118.37 mL/min Estimated GFR (MDRD) > 60.0 ml/min Glucose 139 H (74-106) mg/dL Calcium 9.0 (8.5-10.1) mg/dL Magnesium (1.8-2.4) mg/dL Total Bilirubin 7.9 H (0.2-1.0) mg/dL AST 223 H (15-37) IU/L ALT 72 H (14-63) IU/L Alkaline Phosphatase 430 H (46-116) U/L Ammonia (19-54) ug/dL Troponin I (0.000-0.056) ng/mL B-Natriuretic Peptide 90 (<100) PG/ML Total Protein 7.6 (6.4-8.2) g/dL Albumin 3.1 L (3.4-5.0) g/dL Globulin 4.5 H (2.6-4.0) g/dL Albumin/Globulin Ratio 0.7 L (0.9-1.6) Lipase 130 (73-393) U/L Urine Color Urine Appearance Urine pH (5.0-8.0) Ur Specific Marion (1.001-1.035) Urine Protein (NEGATIVE) mg/dL Urine Glucose (UA) (NEGATIVE) mg/dL Urine Ketones (NEGATIVE) mg/dL Urine Occult Blood (NEGATIVE) Urine Nitrite (NEGATIVE) Urine Bilirubin (NEGATIVE) Urine Ictotest Urine Urobilinogen (<2.0) EU/dL Ur Leukocyte Esterase (NEGATIVE) Urine Opiates Screen (NEGATIVE) Ur Oxycodone Screen (NEGATIVE) Urine Methadone Screen (NEGATIVE) Ur Barbiturates Screen (NEGATIVE) Ur Phencyclidine Scrn (NEGATIVE) Ur Amphetamine Screen (NEGATIVE) U Methamphetamines Scrn (NEGATIVE) U Benzodiazepines Scrn (NEGATIVE) U Cocaine Metab Screen (NEGATIVE) U Marijuana (THC) Screen (NEGATIVE) Ethyl Alcohol 21 mg/dL 08/15/20 08/15/20 08/15/20 Range/Units 10:23 10:23 10:23 WBC (4.0-11.0) K/uL RBC (4.50-5.90) M/uL Hgb (13.0-17.0) g/dL Hct (38.0-50.0) % MCV (80.0-98.0) fL MCH (27.0-32.0) pg MCHC (31.0-37.0) g/dL RDW Std Deviation (28.0-62.0) fl RDW Coeff of Nohemy (11.0-15.0) % Plt Count (150-400) K/uL MPV (7.40-12.00) fL Neut % (Auto) (48.0-80.0) % Lymph % (Auto) (16.0-40.0) % Major % (Auto) (0.0-15.0) % Eos % (Auto) (0.0-7.0) % Baso % (Auto) (0.0-1.5) % Neut # (Auto) (1.4-5.7) K/uL Lymph # (Auto) (0.6-2.4) K/uL Major # (Auto) (0.0-0.8) K/uL Eos # (Auto) (0.0-0.7) K/uL Baso # (Auto) (0.0-0.1) K/uL Nucleated RBC % /100WBC Nucleated RBCs # K/uL INR APTT (18.6-31.3) SEC Sodium (136-148) mmol/L Potassium (3.5-5.1) mmol/L Chloride (98-107) mmol/L Carbon Dioxide (21.0-32.0) mmol/L BUN (7.0-18.0) mg/dL Creatinine (0.8-1.3) mg/dL Est Cr Clr Drug Dosing mL/min Estimated GFR (MDRD) ml/min Glucose (74-106) mg/dL Calcium (8.5-10.1) mg/dL Magnesium 1.3 L (1.8-2.4) mg/dL Total Bilirubin (0.2-1.0) mg/dL AST (15-37) IU/L ALT (14-63) IU/L Alkaline Phosphatase (46-116) U/L Ammonia < 17 L (19-54) ug/dL Troponin I < 0.050 (0.000-0.056) ng/mL B-Natriuretic Peptide (<100) PG/ML Total Protein (6.4-8.2) g/dL Albumin (3.4-5.0) g/dL Globulin (2.6-4.0) g/dL Albumin/Globulin Ratio (0.9-1.6) Lipase (73-393) U/L Urine Color Urine Appearance Urine pH (5.0-8.0) Ur Specific Marion (1.001-1.035) Urine Protein (NEGATIVE) mg/dL Urine Glucose (UA) (NEGATIVE) mg/dL Urine Ketones (NEGATIVE) mg/dL Urine Occult Blood (NEGATIVE) Urine Nitrite (NEGATIVE) Urine Bilirubin (NEGATIVE) Urine Ictotest Urine Urobilinogen (<2.0) EU/dL Ur Leukocyte Esterase (NEGATIVE) Urine Opiates Screen (NEGATIVE) Ur Oxycodone Screen (NEGATIVE) Urine Methadone Screen (NEGATIVE) Ur Barbiturates Screen (NEGATIVE) Ur Phencyclidine Scrn (NEGATIVE) Ur Amphetamine Screen (NEGATIVE) U Methamphetamines Scrn (NEGATIVE) U Benzodiazepines Scrn (NEGATIVE) U Cocaine Metab Screen (NEGATIVE) U Marijuana (THC) Screen (NEGATIVE) Ethyl Alcohol mg/dL 08/15/20 08/15/20 08/15/20 Range/Units 10:29 10:40 10:40 WBC (4.0-11.0) K/uL RBC (4.50-5.90) M/uL Hgb (13.0-17.0) g/dL Hct (38.0-50.0) % MCV (80.0-98.0) fL MCH (27.0-32.0) pg MCHC (31.0-37.0) g/dL RDW Std Deviation (28.0-62.0) fl RDW Coeff of Nohemy (11.0-15.0) % Plt Count (150-400) K/uL MPV (7.40-12.00) fL Neut % (Auto) (48.0-80.0) % Lymph % (Auto) (16.0-40.0) % Major % (Auto) (0.0-15.0) % Eos % (Auto) (0.0-7.0) % Baso % (Auto) (0.0-1.5) % Neut # (Auto) (1.4-5.7) K/uL Lymph # (Auto) (0.6-2.4) K/uL Major # (Auto) (0.0-0.8) K/uL Eos # (Auto) (0.0-0.7) K/uL Baso # (Auto) (0.0-0.1) K/uL Nucleated RBC % /100WBC Nucleated RBCs # K/uL INR 1.14 APTT 27.5 (18.6-31.3) SEC Sodium (136-148) mmol/L Potassium (3.5-5.1) mmol/L Chloride (98-107) mmol/L Carbon Dioxide (21.0-32.0) mmol/L BUN (7.0-18.0) mg/dL Creatinine (0.8-1.3) mg/dL Est Cr Clr Drug Dosing mL/min Estimated GFR (MDRD) ml/min Glucose (74-106) mg/dL Calcium (8.5-10.1) mg/dL Magnesium (1.8-2.4) mg/dL Total Bilirubin (0.2-1.0) mg/dL AST (15-37) IU/L ALT (14-63) IU/L Alkaline Phosphatase (46-116) U/L Ammonia (19-54) ug/dL Troponin I (0.000-0.056) ng/mL B-Natriuretic Peptide (<100) PG/ML Total Protein (6.4-8.2) g/dL Albumin (3.4-5.0) g/dL Globulin (2.6-4.0) g/dL Albumin/Globulin Ratio (0.9-1.6) Lipase (73-393) U/L Urine Color DARK YELLOW Urine Appearance CLEAR Urine pH 7.5 (5.0-8.0) Ur Specific Marion 1.020 (1.001-1.035) Urine Protein NEGATIVE (NEGATIVE) mg/dL Urine Glucose (UA) NEGATIVE (NEGATIVE) mg/dL Urine Ketones NEGATIVE (NEGATIVE) mg/dL Urine Occult Blood NEGATIVE (NEGATIVE) Urine Nitrite NEGATIVE (NEGATIVE) Urine Bilirubin SMALL H (NEGATIVE) Urine Ictotest POSITIVE Urine Urobilinogen 2.0 H (<2.0) EU/dL Ur Leukocyte Esterase NEGATIVE (NEGATIVE) Urine Opiates Screen NEGATIVE (NEGATIVE) Ur Oxycodone Screen NEGATIVE (NEGATIVE) Urine Methadone Screen NEGATIVE (NEGATIVE) Ur Barbiturates Screen NEGATIVE (NEGATIVE) Ur Phencyclidine Scrn NEGATIVE (NEGATIVE) Ur Amphetamine Screen NEGATIVE (NEGATIVE) U Methamphetamines Scrn NEGATIVE (NEGATIVE) U Benzodiazepines Scrn NEGATIVE (NEGATIVE) U Cocaine Metab Screen NEGATIVE (NEGATIVE) U Marijuana (THC) Screen NEGATIVE (NEGATIVE) Ethyl Alcohol mg/dL Result Diagrams: 08/15/20 10:23 08/15/20 10:23 Sepsis Event Note - Evaluation Sepsis Screening Result: No Definite Risk - Focused Exam Vital Signs: Vital Signs Temp Pulse Resp BP Pulse Ox 08/15/20 12:28 36.3 C 112 H 18 151/66 H 96 08/15/20 10:04 36.8 C 105 H 16 153/84 H 96 Problem List Initiated/Reviewed/Updated: Yes Orders Last 24hrs: Active Orders 24 hr Category Date Time Status Admission Status [Patient Status] [ADT] Stat ADT 08/15/20 13:16 Active Ambulate [RC] ASDIRECTED Care 08/15/20 14:22 Ordered Antiembolic Devices [RC] PER UNIT ROUTINE Care 08/15/20 14:23 Ordered Cardiac Monitoring [RC] . DIRECTED Care 08/15/20 13:16 Active EKG Documentation Completion [RC] STAT Care 08/15/20 10:14 Active Oxygen Therapy [RC] PRN Care 08/15/20 14:22 Ordered RT Aerosol Therapy [RC] ASDIRECTED Care 08/15/20 14:24 Ordered VTE/DVT Education [RC] PER UNIT ROUTINE Care 08/15/20 14:22 Ordered Vital Signs [RC] Q4H Care 08/15/20 14:22 Ordered Abdomen Ltd [US] Routine Exams 08/16/20 09:00 Ordered BASIC METABOLIC PANEL,BMP [CHEM] Routine Lab 08/15/20 19:00 Ordered CBC WITH AUTO DIFF [HEME] AM Lab 08/16/20 05:11 Ordered CMP [COMPREHENSIVE METABOLIC PN,CMP] [CHEM] AM Lab 08/16/20 05:11 Ordered CORONAVIRUS COVID-19 CHARU [MOLEC] Stat Lab 08/15/20 13:45 Received HEPATITIS PANEL (4) [REF] Routine Lab 08/15/20 14:34 Ordered HEPATITIS PANEL (4) [REF] Stat Lab 08/15/20 10:56 Received MAGNESIUM [CHEM] AM Lab 08/16/20 05:11 Ordered PHOSPHORUS [CHEM] AM Lab 08/16/20 05:11 Ordered Albuterol/Ipratropium [DuoNeb 3.0-0.5 MG/3 ML] Med 08/15/20 14:22 Ordered 3 ml NEB Q4HRRT PRN Lactated Ringers [Ringers, Lactated] 1,000 ml Med 08/15/20 11:00 Active IV ASDIRECTED Magnesium Sulfate/Water [Magnesium Sulfate in Water Med 08/15/20 13:11 Active Premix] 4 gm Premix Bag 1 bag IV NOW Morphine Med 08/15/20 14:37 Ordered 1 mg IVPUSH Q4H PRN Ondansetron [Zofran] Med 08/15/20 14:22 Ordered 4 mg IVPUSH Q4H PRN Pantoprazole [ProTONIX IV] Med 08/15/20 21:00 Ordered 40 mg IV Q12HR Potassium Chloride Riders [KCL 40 MEQ in Water 100 ML] Med 08/15/20 11:12 Active 40 meq Premix Bag 1 bag IV ONETIME Potassium Chloride Riders [KCL 40 MEQ in Water 100 ML] Med 08/15/20 14:27 Ordered 40 meq Premix Bag 1 bag IV ONETIME Sodium Chloride 0.9% [Saline Flush] Med 08/15/20 10:14 Active 10 ml FLUSH ASDIRECTED PRN Sodium Chloride 0.9% [Saline Flush] Med 08/15/20 10:14 Active 2.5 ml FLUSH ASDIRECTED PRN Saline Lock Insert [OM.PC] Stat Oth 08/15/20 10:14 Ordered Sequential Compression Device [OM.PC] Per Unit Routine Oth 08/15/20 14:23 Ordered Resuscitation Status Routine Resus Stat 08/15/20 14:22 Ordered Medication Orders Albuterol/Ipratropium (Duoneb 3.0-0.5 Mg/3 Ml) 3 ml NEB Q4HRRT PRN PRN Reason: Shortness Of Breath/wheezing Lactated Ringer's (Ringers, Lactated) 1,000 mls @ 125 mls/hr IV ASDIRECTED SHARMAINE Last Admin: 08/15/20 11:02 Dose: 125 mls/hr Documented by: DELLA Potassium Chloride 40 meq/ (Premix) 100 mls @ 25 mls/hr IV ONETIME ONE Stop: 08/15/20 15:11 Last Admin: 08/15/20 11:38 Dose: 25 mls/hr Documented by: HERB Magnesium Sulfate 4 gm/ Premix 100 mls @ 50 mls/hr IV NOW STA; Protocol Stop: 08/15/20 15:10 Last Admin: 08/15/20 13:17 Dose: 2 gm/hr, 50 mls/hr Documented by: KRISTIN Potassium Chloride 40 meq/ (Premix) 100 mls @ 25 mls/hr IV ONETIME ONE Stop: 08/15/20 18:26 Morphine Sulfate (Morphine) 1 mg IVPUSH Q4H PRN PRN Reason: Pain Ondansetron HCl (Zofran) 4 mg IVPUSH Q4H PRN PRN Reason: Nausea/Vomiting Pantoprazole Sodium (Protonix Iv) 40 mg IV Q12HR SHARMAINE Sodium Chloride (Saline Flush) 10 ml FLUSH ASDIRECTED PRN PRN Reason: Keep Vein Open Last Admin: 08/15/20 10:30 Dose: 10 ml Documented by: DELLA Sodium Chloride (Saline Flush) 2.5 ml FLUSH ASDIRECTED PRN PRN Reason: Keep Vein Open Last Admin: 08/15/20 10:30 Dose: 2.5 ml Documented by: DELLA Assessment/Plan Comment:: patient is a 44 male admitted for severe hypokalemia, hypomagnesemia and possible alcoholic hepatitis CAT scan of the abdomen showed severe fatty liver Bilirubin is high, transaminitis noted as well which has improved from the previous labs Patient has no abdominal pain, nausea, vomiting Patient received IV potassium in the ER well replete another 40 meq, Patient received IV potassium in the ER as well obtain repeat BMP in the evening 1 L of IV fluid, vision is eating and drinking okay no need for continuous fluids Patient's liver status is likely from his alcohol usage, agent was thoroughly counseled about alcohol abuse, he has decided to stop drinking alcohol altogether Will follow up on hepatitis panel and obtain an ultrasound of the liver Patient is aware that he needs to follow up with house wirer helper upon discharge [facility] protocol for possible alcohol withdrawal possible discharge in the a.m.
[2020-08-15] MEDS ORDERED: LORazepam 2 MG/ML SDV IVPUSH PRN (17:43)
[2020-08-15 19:16] LABS: BLOOD UREA NITROGEN,BUN 5 mg/dL (7.0-18.0); CARBON DIOXIDE,CO2 32.1 mmol/L (21.0-32.0); CHLORIDE,CL 97 mmol/L (98-107); GLUCOSE RANDOM 143 mg/dL (74-106); POTASSIUM,K 2.7 mmol/L (3.5-5.1); SODIUM,NA 137 mmol/L (136-148)
[2020-08-15] MEDS: Pantoprazole 40 MG Vial IV SCH (20:40)
[2020-08-16 05:59] LABS: BLOOD UREA NITROGEN,BUN 5 mg/dL (7.0-18.0); CARBON DIOXIDE,CO2 31.1 mmol/L (21.0-32.0); CHLORIDE,CL 97 mmol/L (98-107); GLUCOSE RANDOM 94 mg/dL (74-106); POTASSIUM,K 2.5 mmol/L (3.5-5.1); SODIUM,NA 137 mmol/L (136-148)
[2020-08-16] MEDS: Pantoprazole 40 MG Vial IV SCH (09:35)
--- NOTE | 2020-08-16 09:47 | US ---
Limited abdominal ultrasound: Multiple real-time images of the upper right abdomen were obtained. Comparison: No prior ultrasound, previous CT abdomen and pelvis exam of 08/15/20. Liver is echogenic compatible with fatty infiltration. Right kidney shows no hydronephrosis or mass. Right kidney length is 12.8 cm. Gallbladder contains no shadowing gallstones. No gallbladder wall thickening or biliary duct dilatation is seen. Pancreas is obscured from bowel gas. There is some fluid being seen around the liver. Impression: 1. Obscured pancreas and bowel gas. 2. Fatty infiltration within the liver. This is noted on prior CT exam. 3. Fluid around the liver correlating to ascites seen on CT exam. 4. No additional abnormality is appreciated on right upper quadrant abdominal ultrasound. Diagnostic code #3 This report was dictated in MDT
[2020-08-16] MEDS ORDERED: Potassium Chloride 20 MEQ Tab.ER PO ONE (09:56)
[2020-08-16] MEDS ORDERED: Magnesium Oxide 400 MG Tab PO ONE ×2 (09:57→10:03)
--- NOTE | 2020-08-16 13:38 | PCM.DCSUM1 ---
Discharge Summary - Hospital Course Free Text/Narrative:: Patient is a 44-year-old male with past medical history of alcohol abuse, alcoholic hepatitis, hypertension hyperlipidemia who presents to the emergency room with nausea and generalized abdominal pain. He states he was seen in the emergency room on 08/12/2028 for similar complaint and had a new diagnoses of "liver failure". At the time he had multiple labs done and the provider had recommended admission. Ultimately the patient left AGAINST MEDICAL ADVICE. He states he has felt much improved since his ER visit but wants his "liver failure taking care of... I do not want to ". He states the swelling to his lower extremities has decreased. His abdominal distention, pain and "fluid" has improved. He feels the jaundice color of his eyes has improved as well. He states his last alcoholic drink was on Friday. He does feel tremulous and feels he may be going through withdrawals from not having any alcohol. He does have some nausea and is scared to drink any fluids as he does not want to vomit. Patient denies any fever, chills, headache, change in vision, syncope or near syncope. Denies any chest pain, back pain, shortness of breath or cough. Denies any vomiting, diarrhea, constipation or dysuria. Has not noted any blood in urine or stool. In the ER, Abnormal labs from 08/15/20: Potassium 2.2 (*L), Total Bili 6.0(H), AST 251 (H), ALT 87 (H), Ammonia 63 (H). Patient did not have any imaging of abd/pelvis was done and Hepatitis panel was drawn Today's labs: Potassium 2.2 (*L), Total Bili 7.9 (trending up), AST 223, ALT 72, Ammonia <17, Mag 1.3(L) Initial CIWA 7 points (nausea, agitation, anxious, tremor of upper extremities). Received Ativan IV with fluids. CT of the abdomen and pelvis shows atelectasis within the right lung base. A 2.5 cm nodule that needs to be followed up with a noncontrast CT in 9 months to confirm that it is stable. Fatty infiltration within the liver with hepatomegaly. Splenomegaly is noted. Moderate amount of ascites within the abdomen and pelvis. No other acute abnormalities are noted. Patient states he feels better after the IV Ativan. CIWA 1 (mild anxiety). Patient refused any type of transfer, and was agreeable to staying at our facility, Patient is aware that he will need to follow-up with a specialist as an outpatient for his liver failure/ascites. Patient was admitted for further management. Patient was started on soft IV fluids, he was also started on Ativan for alcohol withdrawal, hepatitis panel and US liver was ordered, showed fatty liver Patients was recommended to stop drinking alcohol, next morning his LFTs showed improvement, patient states he felt better and wanted to be discharged rafiq or wanted to leave AMA. his CIWA score was minimum, no withdrawal noted, Patient was medically stable, for dc and recommended to fu with his PCP and GI upon dc. He was told to avoid Tylenol and other hepatotoxic meds. Diagnosis: Stroke: No - Discharge Data Discharge Date: 08/16/20 Discharge Disposition: Home, Self-Care 01 Condition: Stable - Referral to Home Health Primary Care Physician: Carroll Alaniz EXECUTIVE ACCOUNT MANAGER - Discharge Diagnosis/Problem(s) (1) Alcoholic hepatitis SNOMED Code(s): 172186755 ICD Code: K70.10 - ALCOHOLIC HEPATITIS WITHOUT ASCITES Status: Acute (2) Alcoholic hepatitis with ascites SNOMED Code(s): 9269958834169816 ICD Code: K70.11 - ALCOHOLIC HEPATITIS WITH ASCITES Status: Acute (3) Ascites SNOMED Code(s): 197527358 ICD Code: R18.8 - OTHER ASCITES Status: Acute Qualifiers: Ascites type: other type Qualified Code(s): R18.8 - Other ascites - Patient Instructions Diet: Fluid Restriction Fluid Restriction: 1500 mL Activity: As Tolerated Driving: May Drive Today Showering/Bathing: May Shower Notify Provider of: Fever, Increased Pain, Swelling and Redness, Drainage, Nausea and/or Vomiting - Discharge Plan *PRESCRIPTION DRUG MONITORING PROGRAM REVIEWED*: No *COPY OF PRESCRIPTION DRUG MONITORING REPORT IN PATIENT LUCIANA: No Prescriptions/Med Rec: Potassium Chloride [Klor-Con 10] 10 meq PO DAILY 5 Days #5 tab.er Magnesium Amino Acid Chelate [Magnesium] 100 mg PO DAILY 5 Days #5 tablet Home Medications: Home Meds Aspirin 81 mg PO DAILY 08/15/20 [History] Omeprazole 1 cap PO DAILY 08/15/20 [History] Simvastatin 0.5 tab PO BEDTIME 08/15/20 [History] hydroCHLOROthiazide [Hydrochlorothiazide] 0.5 tab PO DAILY 08/15/20 [History] Magnesium Amino Acid Chelate [Magnesium] 100 mg PO DAILY 5 Days #5 tablet 08/16/20 [Rx] Potassium Chloride [Klor-Con 10] 10 meq PO DAILY 5 Days #5 tab.er 08/16/20 [Rx] Patient Handouts: Liver Failure, Hypokalemia, Potassium Phosphate oral tablets, Magnesium Salts tablets, extended-release Referrals: Carroll Alaniz NP [Primary Care Provider] - 08/23/20 9:30 am - Discharge Summary/Plan Comment DC Time >30 min.: No - Patient Data Vitals - Most Recent: Last Vital Signs Temp 36.9 C 08/16/20 08:05 Pulse 111 H 08/16/20 08:05 Resp 18 08/16/20 08:05 BP 155/91 H 08/16/20 08:05 Pulse Ox 93 L 08/16/20 08:05 Weight - Most Recent: 117.934 kg I&O - Last 24 hours: Intake & Output 08/15/20 08/16/20 08/16/20 22:59 06:59 14:59 Intake Total 680 Output Total 920 Balance -240 Lab Results - Last 24 hrs: Laboratory Results - last 24 hr 08/15/20 08/15/20 08/16/20 Range/Units 13:45 18:56 05:20 WBC 5.34 (4.0-11.0) K/uL RBC 3.23 L (4.50-5.90) M/uL Hgb 11.4 L (13.0-17.0) g/dL Hct 33.4 L (38.0-50.0) % MCV 103.4 H (80.0-98.0) fL MCH 35.3 H (27.0-32.0) pg MCHC 34.1 (31.0-37.0) g/dL RDW Std Deviation 68.5 H (28.0-62.0) fl RDW Coeff of Nohemy 18 H (11.0-15.0) % Plt Count 45 L (150-400) K/uL MPV 11.70 (7.40-12.00) fL Neut % (Auto) 71.9 (48.0-80.0) % Lymph % (Auto) 17.4 (16.0-40.0) % [place] % (Auto) 9.2 (0.0-15.0) % Eos % (Auto) 0.9 (0.0-7.0) % Baso % (Auto) 0.6 (0.0-1.5) % Neut # (Auto) 3.8 (1.4-5.7) K/uL Lymph # (Auto) 0.9 (0.6-2.4) K/uL [place] # (Auto) 0.5 (0.0-0.8) K/uL Eos # (Auto) 0.1 (0.0-0.7) K/uL Baso # (Auto) 0.0 (0.0-0.1) K/uL Nucleated RBC % 0.0 /100WBC Nucleated RBCs # 0 K/uL Sodium 137 (136-148) mmol/L Potassium 2.7 L (3.5-5.1) mmol/L Chloride 97 L (98-107) mmol/L Carbon Dioxide 32.1 H (21.0-32.0) mmol/L BUN 5 L (7.0-18.0) mg/dL Creatinine 0.9 (0.8-1.3) mg/dL Est Cr Clr Drug Dosing 118.37 mL/min Estimated GFR (MDRD) > 60.0 ml/min Glucose 143 H (74-106) mg/dL Calcium 8.8 (8.5-10.1) mg/dL Phosphorus (2.6-4.7) mg/dL Magnesium (1.8-2.4) mg/dL Total Bilirubin (0.2-1.0) mg/dL AST (15-37) IU/L ALT (14-63) IU/L Alkaline Phosphatase (46-116) U/L Total Protein (6.4-8.2) g/dL Albumin (3.4-5.0) g/dL Globulin (2.6-4.0) g/dL Albumin/Globulin Ratio (0.9-1.6) SARS-CoV-2 RNA (CHARU) NEGATIVE (NEGATIVE) 08/16/20 Range/Units 05:20 WBC (4.0-11.0) K/uL RBC (4.50-5.90) M/uL Hgb (13.0-17.0) g/dL Hct (38.0-50.0) % MCV (80.0-98.0) fL MCH (27.0-32.0) pg MCHC (31.0-37.0) g/dL RDW Std Deviation (28.0-62.0) fl RDW Coeff of Nohemy (11.0-15.0) % Plt Count (150-400) K/uL MPV (7.40-12.00) fL Neut % (Auto) (48.0-80.0) % Lymph % (Auto) (16.0-40.0) % [place] % (Auto) (0.0-15.0) % Eos % (Auto) (0.0-7.0) % Baso % (Auto) (0.0-1.5) % Neut # (Auto) (1.4-5.7) K/uL Lymph # (Auto) (0.6-2.4) K/uL [place] # (Auto) (0.0-0.8) K/uL Eos # (Auto) (0.0-0.7) K/uL Baso # (Auto) (0.0-0.1) K/uL Nucleated RBC % /100WBC Nucleated RBCs # K/uL Sodium 137 (136-148) mmol/L Potassium 2.5 L (3.5-5.1) mmol/L Chloride 97 L (98-107) mmol/L Carbon Dioxide 31.1 (21.0-32.0) mmol/L BUN 5 L (7.0-18.0) mg/dL Creatinine 0.8 (0.8-1.3) mg/dL Est Cr Clr Drug Dosing 133.17 mL/min Estimated GFR (MDRD) > 60.0 ml/min Glucose 94 (74-106) mg/dL Calcium 8.7 (8.5-10.1) mg/dL Phosphorus 2.9 (2.6-4.7) mg/dL Magnesium 1.5 L (1.8-2.4) mg/dL Total Bilirubin 7.6 H (0.2-1.0) mg/dL AST 199 H (15-37) IU/L ALT 63 (14-63) IU/L Alkaline Phosphatase 392 H (46-116) U/L Total Protein 7.1 (6.4-8.2) g/dL Albumin 2.7 L (3.4-5.0) g/dL Globulin 4.4 H (2.6-4.0) g/dL Albumin/Globulin Ratio 0.6 L (0.9-1.6) SARS-CoV-2 RNA (CHARU) (NEGATIVE) Med Orders - Current: Current Medications Albuterol/Ipratropium (Duoneb 3.0-0.5 Mg/3 Ml) 3 ml NEB Q4HRRT PRN PRN Reason: Shortness Of Breath/wheezing Lorazepam (Ativan) 0 mg IVPUSH Q4H PRN; Protocol PRN Reason: Withdrawal Symptoms Morphine Sulfate (Morphine) 1 mg IVPUSH Q4H PRN PRN Reason: Pain Ondansetron HCl (Zofran) 4 mg IVPUSH Q4H PRN PRN Reason: Nausea/Vomiting Pantoprazole Sodium (Protonix Iv) 40 mg IV Q12HR [facility] Last Admin: 08/16/20 09:35 Dose: 40 mg Documented by: Sodium Chloride (Saline Flush) 10 ml FLUSH ASDIRECTED PRN PRN Reason: Keep Vein Open Last Admin: 08/15/20 10:30 Dose: 10 ml Documented by: Sodium Chloride (Saline Flush) 2.5 ml FLUSH ASDIRECTED PRN PRN Reason: Keep Vein Open Last Admin: 08/15/20 10:30 Dose: 2.5 ml Documented by: Discontinued Medications Lactated Ringer's (Ringers, Lactated) 1,000 mls @ 125 mls/hr IV ASDIRECTED [facility] Stop: 08/15/20 23:59 Last Admin: 08/15/20 11:02 Dose: 125 mls/hr Documented by: Potassium Chloride 40 meq/ (Premix) 100 mls @ 25 mls/hr IV ONETIME ONE Stop: 08/15/20 15:11 Last Admin: 08/15/20 11:38 Dose: 25 mls/hr Documented by: Magnesium Sulfate 4 gm/ Sodium (Chloride) 58 mls @ 29 mls/hr IV NOW STA; Protocol Stop: 08/15/20 14:36 Last Admin: 08/15/20 14:58 Dose: Not Given Documented by: Magnesium Sulfate 4 gm/ Premix 100 mls @ 50 mls/hr IV NOW STA; Protocol Stop: 08/15/20 15:10 Last Admin: 08/15/20 13:17 Dose: 2 gm/hr, 50 mls/hr Documented by: Potassium Chloride 40 meq/ (Premix) 100 mls @ 25 mls/hr IV ONETIME ONE Stop: 08/15/20 18:26 Last Admin: 08/15/20 16:58 Dose: 25 mls/hr Documented by: Iopamidol (Isovue-370 (76%)) 100 ml IVPUSH ONETIME STA Stop: 08/15/20 12:37 Last Admin: 08/15/20 12:37 Dose: 100 ml Documented by: Lorazepam (Ativan) 1 mg IVPUSH ONETIME ONE Stop: 08/15/20 10:17 Last Admin: 08/15/20 10:29 Dose: 1 mg Documented by: Lorazepam (Ativan) 1 mg IVPUSH ONETIME ONE Stop: 08/15/20 13:15 Last Admin: 08/15/20 14:08 Dose: 1 mg Documented by: Magnesium Oxide (Magnesium Oxide) 800 mg PO ONETIME ONE Stop: 08/16/20 09:58 Last Admin: 08/16/20 10:16 Dose: 800 mg Documented by: Magnesium Oxide (Magnesium Oxide) 400 mg PO ONETIME ONE Stop: 08/16/20 10:04 Last Admin: 08/16/20 10:28 Dose: Not Given Documented by: Potassium Chloride (Klor-Con M20) 40 meq PO ONETIME ONE Stop: 08/15/20 11:14 Last Admin: 08/15/20 11:17 Dose: Not Given Documented by: Potassium Chloride (Klor-Con M20) 80 meq PO ONETIME ONE Stop: 08/16/20 09:57 Last Admin: 08/16/20 10:16 Dose: 80 meq Documented by:
== END 2020-08-16 10:35 | disposition home or self-care (01) | DRG 641 ==
LOC: MW.ED 09:43 → MW.MS 13:16
PROVIDERS: ADMIT Student in an Organized Health Care Education/Training Program; ATTEND Student in an Organized Health Care Education/Training Program
DX: K72.90 Hepatic failure, unspecified without coma (principal); E87.6 Hypokalemia; K70.11 Alcoholic hepatitis with ascites; R18.8 Other ascites; Z20.828 Contact with and (suspected) exposure to other viral communicable diseases; I10 Essential (primary) hypertension; E78.00 Pure hypercholesterolemia, unspecified; Z88.8 Allergy status to other drugs, medicaments and biological substances; F17.200 Nicotine dependence, unspecified, uncomplicated; E83.42 Hypomagnesemia; K76.0 Fatty (change of) liver, not elsewhere classified; Z79.82 Long term (current) use of aspirin; Z79.899 Other long term (current) drug therapy
CPT/HCPCS: 36415; 74177; 80053; 80074; 80305; 80307; 81003; 82140; 83690; 83735; 83880; 84484; 85025; 85610; 85730; 93005 ×2; 96361; 96365; 96375; 99285; J2060; J3480; J7120; Q9967; 76705; 76705-26; 80048; 84100; 99222; 99238; A9270-GY; C9113; J3475; U0002